=== PATIENT | female | born 1965 | race Caucasian/White ===

== ENCOUNTER → 2020-08-22 08:00 | Outpatient (BNVA) | payer SELFPAY | PROVIDERS: PCP Nurse Practitioner Family; Visit Provider Student in an Organized Health Care Education/Training Program | DX: Z13.89 Encounter for screening for other disorder (principal) ==

== ENCOUNTER 2020-11-18 07:22 | Outpatient (REF) | payer BC, SELFPAY ==
[2020-11-18 07:59] LABS: MANUAL DIFF FLAG NO
[2020-11-18 08:20] LABS: Estimated Average Glucose 123 mg/dL; Hemoglobin A1C 149.0322 umol/L; Hemoglobin A1c % 5.9 %
[2020-11-18 08:28] LABS: Cholesterol 145 mg/dL; HDL Cholesterol 38 mg/dL; LDL Cholesterol Calculated 73 mg/dl; Lipase 21 U/L (8-78); Triglycerides 170 mg/dL
[2020-11-18 08:29] LABS: Alanine Aminotransferase 38 U/L (0-31); Albumin Level 4.5 g/dL (3.5-5.0); Alkaline Phosphatase 163 U/L (39-117); Anion Gap 15 (12-20); Aspartate Amino Transferase 23 U/L (5-31); Basophils Percent Auto 0.6 % (0-2); Bilirubin Total 0.8 mg/dL (0.0-1.0); Blood Urea Nitrogen 17 mg/dL (9-16); C Reactive Protein 0.58 mg/dL (< or = 0.50); Carbon Dioxide 27 mmol/L (22-29); Chloride 105 mmol/L (96-108); Eosinophils Absolute Auto 0.2 X10*3/uL (0.0-0.4); Eosinophils Percent Auto 2.5 % (0-4); Estimated Glomerular Filt Rate > 60; Glucose Random 123 mg/dL (60-115); Hematocrit 42.4 % (37-47); Hemoglobin 13.7 g/dl (12.0-16.0); Imm Gran Abs Auto 0.01 X10*3/uL (0.00-0.03); Imm Gran Pct Auto 0.2 % (0.0-0.4); Lymphocytes Absolute Auto 1.7 X10*3/uL (1.2-4.9); Lymphocytes Percent Auto 27.3 % (20-40); Mean Corpuscular HGB Conc 32.3 g/dl (31.0-35.0); Mean Corpuscular Hemoglobin 29.8 pg (27.0-33.0); Mean Corpuscular Volume 92.2 fL (80-98); Mean Platelet Volume 10.4 fL (9.4-12.3); Monocytes Absolute Auto 0.4 X10*3/uL (0.1-1.2); Monocytes Percent Auto 6.1 % (2-11); Neutrophils Percent Auto 63.3 % (45-73); Platelet Count 152 X10*3/uL (160-400); Potassium 4.5 mmol/L (3.3-5.1); Red Cell Distribution Width 13.2 % (11.0-16.0); Sodium 142 mmol/L (135-145); Total Protein 6.9 g/dL (6.5-8.0); White Blood Count 6.4 X10*3/uL (4.8-10.8)
[2020-11-18 08:51] LABS: TSH reflex Free T4 1.76 uIU/mL (0.32-4.0); Vitamin D 25-OH Total 14.7 ng/mL (>30)
[2020-11-18 09:28] LABS: Erythrocyte Sedimentation Rate 18 MM/HR (0-20)
== END 2020-11-18 07:23 | disposition home or self-care (01) ==
LOC: HO.LAB 07:22
PROVIDERS: PCP Nurse Practitioner Family; Visit Provider Student in an Organized Health Care Education/Training Program
DX: M05.9 Rheumatoid arthritis with rheumatoid factor, unspecified (principal); I10 Essential (primary) hypertension; E78.5 Hyperlipidemia, unspecified; E55.9 Vitamin D deficiency, unspecified; R73.02 Impaired glucose tolerance (oral)
CPT/HCPCS: 36415; 80053; 80061; 82306; 83036; 83690; 84443; 85025; 85652; 86140

== ENCOUNTER → 2020-11-21 07:49 | Outpatient (BNVA) | payer BC, SELFPAY | PROVIDERS: Visit Provider Student in an Organized Health Care Education/Training Program ==

== ENCOUNTER 2021-03-19 11:40 | Outpatient (REF) | payer BC, SELFPAY ==
[2021-03-19 13:55] LABS: MANUAL DIFF FLAG NO
[2021-03-19 14:01] LABS: Basophils Percent Auto 0.4 % (0-2); Eosinophils Absolute Auto 0.1 X10*3/uL (0.0-0.4); Eosinophils Percent Auto 1.3 % (0-4); Hematocrit 44.6 % (37-47); Hemoglobin 14.3 g/dl (12.0-16.0); Imm Gran Abs Auto 0.07 X10*3/uL (0.00-0.03); Imm Gran Pct Auto 0.8 % (0.0-0.4); Lymphocytes Absolute Auto 1.7 X10*3/uL (1.2-4.9); Lymphocytes Percent Auto 19.3 % (20-40); Mean Corpuscular HGB Conc 32.1 g/dl (31.0-35.0); Mean Corpuscular Hemoglobin 29.5 pg (27.0-33.0); Mean Platelet Volume 10.4 fL (9.4-12.3); Monocytes Absolute Auto 0.5 X10*3/uL (0.1-1.2); Monocytes Percent Auto 5.2 % (2-11); Neutrophils Absolute Auto 6.6 X10*3/uL (2.0-8.3); Platelet Count 185 X10*3/uL (160-400); Red Blood Count 4.85 X10*6/uL (4.20-5.50); Red Cell Distribution Width 13.2 % (11.0-16.0)
[2021-03-19 14:18] LABS: Alanine Aminotransferase 47 U/L (0-31); Albumin Level 4.6 g/dL (3.5-5.0); Alkaline Phosphatase 160 U/L (39-117); Anion Gap 18 (12-20); Aspartate Amino Transferase 28 U/L (5-31); Bilirubin Total 0.5 mg/dL (0.0-1.0); Blood Urea Nitrogen 14 mg/dL (9-16); C Reactive Protein 0.46 mg/dL (< or = 0.50); Calcium 9.3 mg/dL (8.4-10.2); Carbon Dioxide 26 mmol/L (22-29); Chloride 104 mmol/L (96-108); Estimated Glomerular Filt Rate 58; Glucose Random 95 mg/dL (60-115); Potassium 4.6 mmol/L (3.3-5.1); Sodium 143 mmol/L (135-145); Total Protein 7.3 g/dL (6.5-8.0)
[2021-03-19 14:42] LABS: Erythrocyte Sedimentation Rate 18 MM/HR (0-20)
== END 2021-03-19 11:41 | disposition home or self-care (01) ==
LOC: HO.HMGCLDS 11:40
PROVIDERS: PCP Internal Medicine; Visit Provider Student in an Organized Health Care Education/Training Program
DX: M05.9 Rheumatoid arthritis with rheumatoid factor, unspecified (principal)
CPT/HCPCS: 36415; 80053; 85025; 85652; 86140

== ENCOUNTER → 2021-03-22 07:33 | Outpatient (BNVA) | payer BC, SELFPAY | PROVIDERS: PCP Nurse Practitioner Family; Visit Provider Student in an Organized Health Care Education/Training Program ==

== ENCOUNTER → 2021-06-27 07:50 | Outpatient (BNVA) | payer BC, SELFPAY | PROVIDERS: PCP Nurse Practitioner Family; Visit Provider Nurse Practitioner Family ==

== ENCOUNTER → 2021-07-12 08:40 | Outpatient (BNVA) | payer BC, SELFPAY | PROVIDERS: PCP Nurse Practitioner Family; Visit Provider Physician Assistant ==

== ENCOUNTER 2021-08-28 11:22 | Outpatient (REF) | payer BC, SELFPAY ==
[2021-08-28 14:00] LABS: MANUAL DIFF FLAG NO
[2021-08-28 14:12] LABS: Basophils Percent Auto 0.4 % (0-2); Eosinophils Absolute Auto 0.1 X10*3/uL (0.0-0.4); Eosinophils Percent Auto 1.6 % (0-4); Hematocrit 45.5 % (37.0-47.0); Hemoglobin 14.8 g/dl (12.0-16.0); Imm Gran Abs Auto 0.02 X10*3/uL (0.00-0.03); Imm Gran Pct Auto 0.3 % (0.0-0.4); Lymphocytes Absolute Auto 1.9 X10*3/uL (1.2-4.9); Lymphocytes Percent Auto 27.1 % (20-40); Mean Corpuscular HGB Conc 32.5 g/dl (31.0-35.0); Mean Corpuscular Volume 92.3 fL (80.0-98.0); Mean Platelet Volume 10.3 fL (9.4-12.3); Monocytes Absolute Auto 0.4 X10*3/uL (0.1-1.2); Monocytes Percent Auto 5.7 % (2-11); Neutrophils Absolute Auto 4.4 x10*3/uL (2.0-8.3); Neutrophils Percent Auto 64.9 % (45-73); Platelet Count 172 X10*3/uL (160-400); Red Blood Count 4.93 X10*6/uL (4.20-5.50); Red Cell Distribution Width 13.1 % (11.0-16.0); White Blood Count 6.8 X10*3/uL (4.8-10.8)
[2021-08-28 14:30] LABS: Alanine Aminotransferase 40 U/L (0-31); Albumin Level 4.5 g/dL (3.5-5.0); Alkaline Phosphatase 156 U/L (39-117); Anion Gap 15 (12-20); Aspartate Amino Transferase 24 U/L (5-31); Bilirubin Total 0.7 mg/dL (0.0-1.0); Blood Urea Nitrogen 13 mg/dL (9-16); C Reactive Protein 0.59 mg/dL (< or = 0.50); Calcium 9.8 mg/dL (8.4-10.2); Carbon Dioxide 29 mmol/L (22-29); Chloride 102 mmol/L (96-108); Estimated Glomerular Filt Rate 57; Glucose Random 116 mg/dL (60-115); Potassium 4.7 mmol/L (3.3-5.1); Sodium 141 mmol/L (135-145); Total Protein 7.3 g/dL (6.5-8.0)
[2021-08-28 14:55] LABS: Erythrocyte Sedimentation Rate 18 MM/HR (0-20)
== END 2021-08-28 11:23 | disposition home or self-care (01) ==
LOC: HO.HMGCLDS 11:22
PROVIDERS: Student in an Organized Health Care Education/Training Program; PCP Internal Medicine; Visit Provider Nurse Practitioner Family
DX: M05.9 Rheumatoid arthritis with rheumatoid factor, unspecified (principal)
CPT/HCPCS: 36415; 80053; 85025; 85652; 86140

== ENCOUNTER 2021-09-21 10:44 | Outpatient (REF) | payer BC, SELFPAY ==
[2021-09-26 22:22] LABS: Alkaline Phosphatase Bone 19.1 mcg/L (5.6-29.0)
== END 2021-09-21 10:45 | disposition home or self-care (01) ==
LOC: HO.HMGCLDS 10:44
PROVIDERS: PCP Internal Medicine; Visit Provider Nurse Practitioner Family
DX: R74.8 Abnormal levels of other serum enzymes (principal)
CPT/HCPCS: 36415; 84075

== ENCOUNTER → 2021-10-01 08:02 | Outpatient (BNVA) | payer BC, SELFPAY | PROVIDERS: PCP Nurse Practitioner Family; Visit Provider Nurse Practitioner Family ==

== ENCOUNTER → 2021-12-20 08:41 | Outpatient (BNVA) | payer BC, SELFPAY | PROVIDERS: PCP Nurse Practitioner Family; Visit Provider Nurse Practitioner Family | DX: Z13.89 Encounter for screening for other disorder (principal) ==

== ENCOUNTER 2021-12-21 09:41 | Outpatient (REF) | payer BC, SELFPAY ==
[2021-12-21 11:10] LABS: MANUAL DIFF FLAG NO
[2021-12-21 11:20] LABS: Basophils Percent Auto 0.3 % (0-2); Eosinophils Absolute Auto 0.2 X10*3/uL (0.0-0.4); Eosinophils Percent Auto 2.2 % (0-4); Hematocrit 43.7 % (37.0-47.0); Imm Gran Abs Auto 0.01 X10*3/uL (0.00-0.03); Imm Gran Pct Auto 0.1 % (0.0-0.4); Lymphocytes Absolute Auto 1.5 X10*3/uL (1.2-4.9); Lymphocytes Percent Auto 21.3 % (20-40); Mean Corpuscular Hemoglobin 29.4 pg (27.0-33.0); Mean Corpuscular Volume 91.8 fL (80.0-98.0); Mean Platelet Volume 10.4 fL (9.4-12.3); Monocytes Absolute Auto 0.5 X10*3/uL (0.1-1.2); Monocytes Percent Auto 6.5 % (2-11); Neutrophils Absolute Auto 4.8 x10*3/uL (2.0-8.3); Neutrophils Percent Auto 69.6 % (45-73); Platelet Count 170 X10*3/uL (160-400); Red Blood Count 4.76 X10*6/uL (4.20-5.50); Red Cell Distribution Width 13.2 % (11.0-16.0); White Blood Count 6.9 X10*3/uL (4.8-10.8)
[2021-12-21 11:40] LABS: Alanine Aminotransferase 43 U/L (0-31); Albumin Level 4.5 g/dL (3.5-5.0); Alkaline Phosphatase 140 U/L (39-117); Anion Gap 14 (12-20); Aspartate Amino Transferase 26 U/L (5-31); Bilirubin Total 0.5 mg/dL (0.0-1.0); Blood Urea Nitrogen 17 mg/dL (9-16); C Reactive Protein 0.48 mg/dL (< or = 0.50); Calcium 9.5 mg/dL (8.4-10.2); Carbon Dioxide 28 mmol/L (22-29); Chloride 103 mmol/L (96-108); Estimated Glomerular Filt Rate > 60; Glucose Random 142 mg/dL (60-115); Potassium 4.7 mmol/L (3.3-5.1); Sodium 140 mmol/L (135-145); Total Protein 7.1 g/dL (6.5-8.0)
[2021-12-21 12:09] LABS: Erythrocyte Sedimentation Rate 17 MM/HR (0-20)
== END 2021-12-21 09:42 | disposition home or self-care (01) ==
LOC: HO.HMGCLDS 09:41
PROVIDERS: Visit Provider Nurse Practitioner Family
DX: M05.9 Rheumatoid arthritis with rheumatoid factor, unspecified (principal)
CPT/HCPCS: 36415; 80053; 85025; 85652; 86140

== ENCOUNTER 2022-04-17 09:45 | Outpatient (REF) | payer BC, SELFPAY ==
[2022-04-17 11:19] LABS: MANUAL DIFF FLAG NO
[2022-04-17 11:26] LABS: Basophils Percent Auto 0.5 % (0-2); Eosinophils Absolute Auto 0.1 X10*3/uL (0.0-0.4); Eosinophils Percent Auto 1.3 % (0-4); Hematocrit 43.5 % (37.0-47.0); Hemoglobin 14.4 g/dl (12.0-16.0); Imm Gran Abs Auto 0.02 X10*3/uL (0.00-0.03); Imm Gran Pct Auto 0.3 % (0.0-0.4); Lymphocytes Absolute Auto 1.7 X10*3/uL (1.2-4.9); Lymphocytes Percent Auto 21.3 % (20-40); Mean Corpuscular HGB Conc 33.1 g/dl (31.0-35.0); Mean Corpuscular Hemoglobin 29.8 pg (27.0-33.0); Mean Corpuscular Volume 90.1 fL (80.0-98.0); Mean Platelet Volume 10.1 fL (9.4-12.3); Monocytes Absolute Auto 0.5 X10*3/uL (0.1-1.2); Monocytes Percent Auto 5.9 % (2-11); Neutrophils Absolute Auto 5.5 x10*3/uL (2.0-8.3); Neutrophils Percent Auto 70.7 % (45-73); Platelet Count 166 X10*3/uL (160-400); Red Blood Count 4.83 X10*6/uL (4.20-5.50); Red Cell Distribution Width 13.1 % (11.0-16.0); White Blood Count 7.8 X10*3/uL (4.8-10.8)
[2022-04-17 11:39] LABS: Alanine Aminotransferase 49 U/L (0-31); Aspartate Amino Transferase 26 U/L (5-31); C Reactive Protein 0.38 mg/dL (< or = 0.50); Estimated Glomerular Filt Rate 59
[2022-04-17 12:18] LABS: Erythrocyte Sedimentation Rate 17 MM/HR (0-20)
== END 2022-04-17 09:46 | disposition home or self-care (01) ==
LOC: HO.HMGCLDS 09:45
PROVIDERS: PCP Internal Medicine; Visit Provider Nurse Practitioner Family
DX: M05.9 Rheumatoid arthritis with rheumatoid factor, unspecified (principal); Z79.899 Other long term (current) drug therapy
CPT/HCPCS: 36415; 82565; 84450; 84460; 85025; 85652; 86140

== ENCOUNTER 2022-07-08 13:40 | Outpatient (REF) | payer BC, SELFPAY ==
--- NOTE | ~2022-07-08 | XR_ITS ---
EXAMINATION: BILATERAL HAND X-RAY CLINICAL INFORMATION: Rheumatoid arthritis COMPARISON: Previous x-ray October 2019 TECHNIQUE: 3 views of each hand FINDINGS: Left: No fracture or dislocation. Mild subluxation at the first MCP joint, and joint space narrowing. There is question of small subchondral cysts or erosive changes. Joint spaces are otherwise normal. There may be a small erosion in the ulnar styloid. Stable sclerotic density in the distal radial shaft. Soft tissues are normal. Right: Bone alignment is normal. No fracture or dislocation. Sclerotic density in the distal radius stable from previous exam from 2019. Normal joint spaces. Normal soft tissues. XR/XR hand LT min 3V IMPRESSION: Left: Mild arthritis and subluxation at the first MCP joint. Question small erosion in the ulnar styloid. Right: No evidence of arthritis.
--- NOTE | ~2022-07-08 | XR_ITS ---
EXAMINATION: BILATERAL HAND X-RAY CLINICAL INFORMATION: Rheumatoid arthritis COMPARISON: Previous x-ray October 2019 TECHNIQUE: 3 views of each hand FINDINGS: Left: No fracture or dislocation. Mild subluxation at the first MCP joint, and joint space narrowing. There is question of small subchondral cysts or erosive changes. Joint spaces are otherwise normal. There may be a small erosion in the ulnar styloid. Stable sclerotic density in the distal radial shaft. Soft tissues are normal. Right: Bone alignment is normal. No fracture or dislocation. Sclerotic density in the distal radius stable from previous exam from 2019. Normal joint spaces. Normal soft tissues. XR/XR hand RT min 3V IMPRESSION: Left: Mild arthritis and subluxation at the first MCP joint. Question small erosion in the ulnar styloid. Right: No evidence of arthritis.
--- NOTE | ~2022-07-08 | XR_ITS ---
EXAMINATION: BILATERAL FOOT X-RAY CLINICAL INFORMATION: Rheumatoid arthritis COMPARISON: Previous x-ray February 2020 TECHNIQUE: 3 views of each foot FINDINGS: Right: There is hallux valgus deformity at the first MTP joint. There is lateral subluxation at the second third and fourth MTP joints. There are cysts or erosive changes at the IP joint of the great toe and the second third and fourth MTP joints. Joint spaces are otherwise normal. There is a small plantar calcaneal spur. Soft tissues are otherwise normal. Left: There are postsurgical changes with plate and screws across the first MTP joint and ankylosis. Orthopedic hardware appears intact and unchanged. There is resection of the metatarsal heads of the second through fifth toes. There are no cysts or erosive changes. Plantar calcaneal spur. Soft tissues are otherwise normal. XR/XR foot RT 2V IMPRESSION: Right: Hallux valgus deformity at the first MTP joint. Inflammatory arthritis and doesn't subluxation at the second third and fourth MTP joints and inflammatory arthritis at the IP joint of the first toe. This is not appear appreciably changed from 2020. Left: Stable postsurgical changes.
--- NOTE | ~2022-07-08 | XR_ITS ---
EXAMINATION: BILATERAL FOOT X-RAY CLINICAL INFORMATION: Rheumatoid arthritis COMPARISON: Previous x-ray February 2020 TECHNIQUE: 3 views of each foot FINDINGS: Right: There is hallux valgus deformity at the first MTP joint. There is lateral subluxation at the second third and fourth MTP joints. There are cysts or erosive changes at the IP joint of the great toe and the second third and fourth MTP joints. Joint spaces are otherwise normal. There is a small plantar calcaneal spur. Soft tissues are otherwise normal. Left: There are postsurgical changes with plate and screws across the first MTP joint and ankylosis. Orthopedic hardware appears intact and unchanged. There is resection of the metatarsal heads of the second through fifth toes. There are no cysts or erosive changes. Plantar calcaneal spur. Soft tissues are otherwise normal. XR/XR foot LT 2V IMPRESSION: Right: Hallux valgus deformity at the first MTP joint. Inflammatory arthritis and doesn't subluxation at the second third and fourth MTP joints and inflammatory arthritis at the IP joint of the first toe. This is not appear appreciably changed from 2020. Left: Stable postsurgical changes.
[2022-07-08 16:27] LABS: MANUAL DIFF FLAG NO
[2022-07-08 16:33] LABS: Basophils Percent Auto 0.5 % (0-2); Eosinophils Absolute Auto 0.1 X10*3/uL (0.0-0.4); Eosinophils Percent Auto 1.3 % (0-4); Hematocrit 43.9 % (37.0-47.0); Hemoglobin 14.5 g/dl (12.0-16.0); Imm Gran Abs Auto 0.02 X10*3/uL (0.00-0.03); Imm Gran Pct Auto 0.2 % (0.0-0.4); Lymphocytes Absolute Auto 1.7 X10*3/uL (1.2-4.9); Lymphocytes Percent Auto 20.3 % (20-40); Mean Corpuscular Hemoglobin 29.8 pg (27.0-33.0); Mean Corpuscular Volume 90.1 fL (80.0-98.0); Mean Platelet Volume 10.1 fL (9.4-12.3); Monocytes Absolute Auto 0.4 X10*3/uL (0.1-1.2); Monocytes Percent Auto 4.9 % (2-11); Neutrophils Absolute Auto 6.1 x10*3/uL (2.0-8.3); Neutrophils Percent Auto 72.8 % (45-73); Platelet Count 159 X10*3/uL (160-400); Red Blood Count 4.87 X10*6/uL (4.20-5.50); Red Cell Distribution Width 12.9 % (11.0-16.0); White Blood Count 8.3 X10*3/uL (4.8-10.8)
[2022-07-08 16:40] LABS: Alanine Aminotransferase 46 U/L (0-31); Aspartate Amino Transferase 26 U/L (5-31); C Reactive Protein 0.59 mg/dL (< or = 0.50); Estimated Glomerular Filt Rate > 60
[2022-07-08 17:11] LABS: Erythrocyte Sedimentation Rate 16 MM/HR (0-20)
== END 2022-07-08 13:41 | disposition home or self-care (01) ==
LOC: HO.HMGCX 13:40
PROVIDERS: PCP Internal Medicine; Visit Provider Nurse Practitioner Family
DX: M05.9 Rheumatoid arthritis with rheumatoid factor, unspecified (principal); Z79.899 Other long term (current) drug therapy
CPT/HCPCS: 36415; 73130; 73620; 82565; 84450; 84460; 85025; 85652; 86140

== ENCOUNTER → 2022-09-30 11:30 | Outpatient (BNVA) | payer BC, SELFPAY | PROVIDERS: PCP Internal Medicine; Visit Provider Nurse Practitioner Family | DX: Z13.89 Encounter for screening for other disorder (principal) ==

== ENCOUNTER 2022-10-24 13:32 | Outpatient (REF) | payer BC, SELFPAY ==
[2022-10-24 16:29] LABS: MANUAL DIFF FLAG NO
[2022-10-24 16:38] LABS: Basophils Percent Auto 0.4 % (0-2); Eosinophils Absolute Auto 0.1 X10*3/uL (0.0-0.4); Eosinophils Percent Auto 1.7 % (0-4); Hematocrit 41.6 % (37.0-47.0); Hemoglobin 13.5 g/dl (12.0-16.0); Imm Gran Abs Auto 0.02 X10*3/uL (0.00-0.03); Imm Gran Pct Auto 0.2 % (0.0-0.4); Lymphocytes Absolute Auto 1.9 X10*3/uL (1.2-4.9); Lymphocytes Percent Auto 22.4 % (20-40); Mean Corpuscular HGB Conc 32.5 g/dl (31.0-35.0); Mean Corpuscular Hemoglobin 29.5 pg (27.0-33.0); Mean Platelet Volume 10.4 fL (9.4-12.3); Monocytes Absolute Auto 0.5 X10*3/uL (0.1-1.2); Monocytes Percent Auto 6.3 % (2-11); Neutrophils Absolute Auto 5.7 x10*3/uL (2.0-8.3); Platelet Count 161 X10*3/uL (160-400); Red Blood Count 4.57 X10*6/uL (4.20-5.50); Red Cell Distribution Width 13.3 % (11.0-16.0); White Blood Count 8.3 X10*3/uL (4.8-10.8)
[2022-10-24 16:47] LABS: Alanine Aminotransferase 32 U/L (0-31); Aspartate Amino Transferase 21 U/L (5-31); Estimated Glomerular Filt Rate > 60; Uric Acid 7.8 mg/dL (2.4-5.7)
[2022-10-24 17:18] LABS: Erythrocyte Sedimentation Rate 27 MM/HR (0-20)
[2022-10-25 08:43] LABS: HBc Num1 0.07 S/CO (0.00-0.79); HBsAGNum1 0.23 S/CO (0.00-0.99); Hepatitis A Antibody IgM 0.15 Index (0-0.79); Hepatitis B Core Antibody Nonreactive (Nonreactive); Hepatitis B Surface Antigen Negative (Negative); ~HepC Num1 0.05 S/CO (0.00-0.79); ~Hepatitis A Antibody IgM Nonreactive (Nonreactive); ~Hepatitis B Surface Antibody NONREACTIVE (Nonreactive); ~Hepatitis C Antibody Nonreactive (Nonreactive)
== END 2022-10-24 13:33 | disposition home or self-care (01) ==
LOC: HO.HMGCLDS 13:32
PROVIDERS: PCP Internal Medicine; Visit Provider Nurse Practitioner Family
DX: M05.9 Rheumatoid arthritis with rheumatoid factor, unspecified (principal); M25.50 Pain in unspecified joint; Z79.899 Other long term (current) drug therapy
CPT/HCPCS: 36415; 82565; 84450; 84460; 84550; 85025; 85652; 86140; 86704; 86706; 86709; 86803; 87340

== ENCOUNTER → 2022-11-05 11:42 | Outpatient (BNVA) | payer BC, SELFPAY | PROVIDERS: PCP Internal Medicine; Visit Provider Nurse Practitioner Family | DX: Z13.89 Encounter for screening for other disorder (principal) ==

== ENCOUNTER 2023-01-08 07:52 | Outpatient (REF) | payer BC, SELFPAY ==
[2023-01-10 15:14] LABS: TS Negative Control Passed; TS Panel A 0; TS Panel B 3; TS Positive Control Passed; TSpotTB Negative (Negative)
== END 2023-01-08 07:53 | disposition home or self-care (01) ==
LOC: HO.HMGCLDS 07:52
PROVIDERS: PCP Internal Medicine; Visit Provider Nurse Practitioner Family
DX: M05.9 Rheumatoid arthritis with rheumatoid factor, unspecified (principal)
CPT/HCPCS: 36415; 86481

== ENCOUNTER → 2023-01-24 10:40 | Outpatient (BNVA) | payer BC, SELFPAY | PROVIDERS: PCP Internal Medicine; Visit Provider Nurse Practitioner Family ==

== ENCOUNTER 2023-01-30 13:39 | Outpatient (REF) | payer BC, SELFPAY ==
[2023-01-30 16:40] LABS: MANUAL DIFF FLAG NO
[2023-01-30 16:43] LABS: Basophils Percent Auto 0.5 % (0-2); Eosinophils Absolute Auto 0.1 X10*3/uL (0.0-0.4); Eosinophils Percent Auto 1.2 % (0-4); Hematocrit 42.8 % (37.0-47.0); Hemoglobin 14.3 g/dl (12.0-16.0); Imm Gran Abs Auto 0.03 X10*3/uL (0.00-0.03); Imm Gran Pct Auto 0.4 % (0.0-0.4); Lymphocytes Absolute Auto 1.6 X10*3/uL (1.2-4.9); Mean Corpuscular HGB Conc 33.4 g/dl (31.0-35.0); Mean Corpuscular Hemoglobin 29.9 pg (27.0-33.0); Mean Corpuscular Volume 89.4 fL (80.0-98.0); Mean Platelet Volume 9.9 fL (9.4-12.3); Monocytes Absolute Auto 0.4 X10*3/uL (0.1-1.2); Monocytes Percent Auto 5.3 % (2-11); Neutrophils Absolute Auto 5.9 x10*3/uL (2.0-8.3); Neutrophils Percent Auto 72.6 % (45-73); Platelet Count 168 X10*3/uL (160-400); Red Blood Count 4.79 X10*6/uL (4.20-5.50); Red Cell Distribution Width 13.4 % (11.0-16.0); White Blood Count 8.2 X10*3/uL (4.8-10.8)
[2023-01-30 16:55] LABS: Alanine Aminotransferase 23 U/L (0-31); Albumin Level 4.3 g/dL (3.5-5.0); Alkaline Phosphatase 146 U/L (39-117); Anion Gap 14 (12-20); Aspartate Amino Transferase 16 U/L (5-31); Bilirubin Total 0.6 mg/dL (0.0-1.0); Blood Urea Nitrogen 19 mg/dL (9-16); C Reactive Protein 0.84 mg/dL (< or = 0.50); Calcium 9.1 mg/dL (8.4-10.2); Carbon Dioxide 29 mmol/L (22-29); Chloride 104 mmol/L (96-108); Estimated Glomerular Filt Rate > 60; Glucose Random 164 mg/dL (60-115); Potassium 4.5 mmol/L (3.3-5.1); Sodium 142 mmol/L (135-145); Total Protein 7.1 g/dL (6.5-8.0)
[2023-01-30 17:41] LABS: Erythrocyte Sedimentation Rate 33 MM/HR (0-20)
== END 2023-01-30 13:40 | disposition home or self-care (01) ==
LOC: HO.HMGCLDS 13:39
PROVIDERS: PCP Internal Medicine; Visit Provider Nurse Practitioner Family
DX: M05.9 Rheumatoid arthritis with rheumatoid factor, unspecified (principal)
CPT/HCPCS: 36415; 80053; 85025; 85652; 86140

== ENCOUNTER 2023-05-09 10:21 | Outpatient (REF) | payer BC, SELFPAY ==
[2023-05-09 13:15] LABS: MANUAL DIFF FLAG NO
[2023-05-09 13:25] LABS: Basophils Percent Auto 0.5 % (0-2); Eosinophils Absolute Auto 0.1 X10*3/uL (0.0-0.4); Eosinophils Percent Auto 1.3 % (0-4); Hematocrit 45.1 % (37.0-47.0); Hemoglobin 14.8 g/dl (12.0-16.0); Imm Gran Abs Auto 0.03 X10*3/uL (0.00-0.03); Imm Gran Pct Auto 0.4 % (0.0-0.4); Lymphocytes Absolute Auto 1.7 X10*3/uL (1.2-4.9); Lymphocytes Percent Auto 20.6 % (20-40); Mean Corpuscular HGB Conc 32.8 g/dl (31.0-35.0); Mean Corpuscular Volume 91.3 fL (80.0-98.0); Mean Platelet Volume 10.2 fL (9.4-12.3); Monocytes Absolute Auto 0.4 X10*3/uL (0.1-1.2); Monocytes Percent Auto 4.7 % (2-11); Neutrophils Percent Auto 72.5 % (45-73); Platelet Count 181 X10*3/uL (160-400); Red Blood Count 4.94 X10*6/uL (4.20-5.50); Red Cell Distribution Width 13.6 % (11.0-16.0); White Blood Count 8.3 X10*3/uL (4.8-10.8)
[2023-05-09 13:52] LABS: Alanine Aminotransferase 32 U/L (0-31); Albumin Level 4.5 g/dL (3.5-5.0); Alkaline Phosphatase 133 U/L (39-117); Anion Gap 18 (12-20); Aspartate Amino Transferase 20 U/L (5-31); Bilirubin Total 0.5 mg/dL (0.0-1.0); Blood Urea Nitrogen 15 mg/dL (9-16); Calcium 9.7 mg/dL (8.4-10.2); Carbon Dioxide 24 mmol/L (22-29); Chloride 105 mmol/L (96-108); Estimated Glomerular Filt Rate > 60; Glucose Random 146 mg/dL (60-115); Potassium 4.1 mmol/L (3.3-5.1); Sodium 143 mmol/L (135-145); Total Protein 7.4 g/dL (6.5-8.0)
[2023-05-09 14:13] LABS: Erythrocyte Sedimentation Rate 16 MM/HR (0-20)
== END 2023-05-09 10:22 | disposition home or self-care (01) ==
LOC: HO.HMGCLDS 10:21
PROVIDERS: PCP Internal Medicine; Visit Provider Nurse Practitioner Family
DX: M05.9 Rheumatoid arthritis with rheumatoid factor, unspecified (principal)
CPT/HCPCS: 36415; 80053; 85025; 85652; 86140

== ENCOUNTER 2023-05-14 15:20 | Outpatient (AMB) | payer BC, SELFPAY ==
[2023-05-14 15:28] VITALS: BP 130/70; PULSE 108; TEMP 36.6; O2SAT 95; BMI 32.4
--- NOTE | 2023-05-14 15:28 | A.OFFVIS_ITS ---
Intake Vital Signs 05/14/23 15:28 Height 5 ft 6 in Weight 201 lb 0.985 oz BMI 32.4 BP 130/70 Blood Pressure Location Rt brachial Position Sitting Pulse 108 H Pulse Source Pulse Oximeter Temp 97.9 F Temp Source Skin Pulse Oximetry (%) 95 Intake Visit Reasons: RA Flavor Room Worker Required: No Accompanied by: Self / Same As Patient Allergies acetaminophen [From PERCOCET] Allergy (Intermediate, Verified 05/14/23 15:31) swelling oxycodone [From PERCOCET] Allergy (Intermediate, Verified 05/14/23 15:31) Swelling Medication List - Last Reconciled 05/14/23 by Hawa Carbone MD adalimumab (Humira(CF) Pen) 40 mg (0.4 mL) subcut Q2W apixaban (Eliquis) 5 mg PO BID atorvastatin 80 mg PO DAILY sertraline 50 mg PO DAILY HPI HPI Comments History of Present Illness Details This is a 57-year-old female with seropositive RA who returns for follow-up. She was last evaluated by Amalia Carmichael 01/2023 Patient stated that back in December she started having significant RA flares affecting multiple joints HCQ, soon after she started having chest pain. 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 MR abdomen was done which showed similar findings as well as a liver hemangioma. She was started on Eliquis. She was evaluated by Dr. Jeffers, she had a walk test which was unremarkable, PFT showed mild restrictive disease. She was also evaluated by [facility] Dr. Trejo. She is currently on Eliquis. She notes intermittent shortness of breath. Patient was switched from Enbrel to Humira last visit. She has been using it for the last 3 months. She knows dramatic improvement. 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 [facility] Denies arthralgias and Denies stiffness Physical Exam Vital Signs: Last Vital Signs Temp 97.9 F 05/14/23 15:28 Pulse 108 H 05/14/23 15:28 BP 130/70 05/14/23 15:28 Pulse Ox 95 05/14/23 15:28 BMI result Body Mass Index 32.4 Const General: cooperative, healthy appearing and comfortable Nutritional Appearance: obese Orientation/consciousness: patient oriented x3 Limitations: no limitations HEENT Head: Yes normocephalic and Yes atraumatic Mouth: moist mucous membranes Resp Effort & Inspection: normal respiratory effort and able to speak in complete sentences Auscultation: clear to auscultation bilaterally Cardio Rate: regular rate Rhythm: regular rhythm Skin General skin exam: no rashes or lesions noted Neuro General: patient oriented x3 Extrem Other: Mild right wrist swelling, minimal deformity but no tenderness No active synovitis today Normal nailfold capillaroscopy Assessment & Plan Assessment & Plan (1) Seropositive rheumatoid arthritis: Comment: JAVAD (diagnosed in the 11th grade after her jaw broke - never treated with meds, only sugery), Seropositive RA (RF++ CCP++) Dx. early 2017- presented with worsening hand and foot pain. Xrays of her hands (2017) with erosions. Plaquenil started 2018 after diagnosis, then 6 tabs MTX was added but Pt had GI side effects. Switched to SubQ MTX a for a few months, unable to obtain due to medication shortage. Restarted oral MTX, stopped due to increased LFTs in December 2019. Enbrel 11/2019-01/2023 2ry non response Humira 01/2023 effective Code(s): M05.9 - Rheumatoid arthritis with rheumatoid factor, unspecified Plan: This is a 57-year-old female with seropositive erosive RA who presents for follow-up. RA is well controlled on Humira 40 mg every other week and hydroxychloroquine 200 mg Twice daily. Discontinue hydroxychloroquine. Continue Humira 40 mg every other week. Labs before next visit in 3 months (2) Interstitial lung disease due to connective tissue disease: Code(s): J84.89 - Other specified interstitial pulmonary diseases; M35.9 - Systemic involvement of connective tissue, unspecified Plan: CT chest 2022 showed findings suggestive of NSIP. This is likely related to her underlying connective tissue disease. She is being followed by tanker service attendant. PFT showed mild restrictive disease. Continue to monitor patient respiratory status, serial PFTs, can repeat CT chest in the future. If there is worsening ILD, we can consider a switch in DMARD, can consider Orencia, rituximab or an IL 6 inhibitor Will request records from Dr. Jeffers. Can add further serologies to evaluate for an overlap with another autoimmune rheumatic disease (3) DVT (deep venous thrombosis): Code(s): I82.409 - Acute embolism and thrombosis of unspecified deep veins of unspecified lower extremity Plan: Recent IVC and left renal vein thrombus. She was evaluated by zinc plating machine operator and a hypercoagulable workup was ordered. Will request records from patient's hem atologist. Currently on Eliquis 5 mg Twice daily Plan I spent 46 minutes reviewing patient's chart, evaluating patient, ordering diagnostic workup, counseling patient and documenting in the chart Coding Level of Care Code Est Pt Level 5 (32125) Diagnoses Seropositive rheumatoid arthritis M05.9 Interstitial lung disease due to connective tissue disease J84.89; M35.9 DVT (deep venous thrombosis) I82.409
== END 2023-05-14 16:15 | disposition home or self-care (01) ==
PROVIDERS: PCP Internal Medicine; Visit Provider Student in an Organized Health Care Education/Training Program
DX: M05.79 Rheumatoid arthritis with rheumatoid factor of multiple sites without organ or systems involvement (principal); J84.89 Other specified interstitial pulmonary diseases; M35.89 Other specified systemic involvement of connective tissue; I82.409 Acute embolism and thrombosis of unspecified deep veins of unspecified lower extremity
CPT/HCPCS: 99215

== ENCOUNTER → 2023-05-14 15:20 | Outpatient (BNVA) | payer BC, SELFPAY | PROVIDERS: PCP Internal Medicine; Visit Provider Student in an Organized Health Care Education/Training Program ==

== ENCOUNTER 2023-08-14 13:16 | Outpatient (AMB) | payer BC, SELFPAY ==
--- NOTE | 2023-08-14 13:26 | MHC.OFFVIS ---
Intake Vital Signs 08/14/23 13:28 Height 5 ft 6 in Weight 19 lb 13.466 oz BMI 3.2 BP 124/74 Blood Pressure Location Rt brachial Position Sitting Pulse 105 H Pulse Source Pulse Oximeter Temp 97 F Temp Source Skin Pulse Oximetry (%) 95 Oxygen Delivery Method Room Air Intake Visit Reasons: RA Intake Note: Patient presents today for RA follow up. Senior Nuclear Medicine Technologist Required: No Accompanied by: Self / Same As Patient Allergies acetaminophen [From PERCOCET] Allergy (Intermediate, Verified 08/14/23 13:27) swelling oxycodone [From PERCOCET] Allergy (Intermediate, Verified 08/14/23 13:27) Swelling Medication List - Last Reconciled 08/14/23 by Hawa Carbone MD adalimumab (Humira(CF) Pen) 40 mg (0.4 mL) subcut Q2W apixaban (Eliquis) 5 mg PO BID atorvastatin 80 mg PO DAILY sertraline 50 mg PO DAILY HPI HPI Comments History of Present Illness Details This is a 57-year-old female with seropositive RA who returns for follow-up. On Humira every other week. Well tolerated. Last visit hydroxychloroquine was discontinued. A week and half ago patient started having joint pain and stiffness of her left jaw, right knee, left index and left ankle. Most bothersome joint was her left jaw. She took 2 Tylenol with improvement. She states that this flare-up is resolving. She is doing well otherwise. There is no recent illnesses. She states that she gets intermittent shortness of breath with activity. States that the shortness of breath is sporadic and not persistent with activity. No recent illnesses. 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 Review of Systems ENT Details: Jaw pain Musc Reports arthralgias, Reports joint swelling and Reports stiffness Physical Exam Vital Signs: Last Vital Signs Temp 97 F 08/14/23 13:28 Pulse 105 H 08/14/23 13:28 BP 124/74 08/14/23 13:28 Pulse Ox 95 08/14/23 13:28 Oxygen Delivery Method Room Air 08/14/23 13:28 BMI result Body Mass Index 3.2 Const General: cooperative, healthy appearing and comfortable Nutritional Appearance: obese Orientation/consciousness: patient oriented x3 Limitations: no limitations HEENT Head: Yes normocephalic and Yes atraumatic Mouth: moist mucous membranes Resp Other: Faint Fine crackles right lung base Effort & Inspection: normal respiratory effort and able to speak in complete sentences Cardio Rate: regular rate Rhythm: regular rhythm Skin General skin exam: no rashes or lesions noted Neuro General: patient oriented x3 Extrem Other: Mild right wrist swelling, minimal deformity but no tenderness Left 2nd MCP tenderness Left TMJ pain with opening and closing her mouth Mild right knee warmth and pain with flexion and extension Normal nailfold capillaroscopy Assessment & Plan Assessment & Plan (1) Seropositive rheumatoid arthritis: Comment: JAVAD (diagnosed in the 11th grade after her jaw broke - never treated with meds, only sugery), Seropositive RA (RF++ CCP++) Dx. early 2017- presented with worsening hand and foot pain. Xrays of her hands (2017) with erosions. Plaquenil started 2018 after diagnosis, DC 05/2023 (not needed) 6 tabs MTX was added but Pt had GI side effects. Switched to SubQ MTX a for a few months, unable to obtain due to medication shortage. Restarted oral MTX, stopped due to increased LFTs in December 2019. Enbrel 11/2019-01/2023 2ry non response Humira 01/2023 effective Code(s): M05.9 - Rheumatoid arthritis with rheumatoid factor, unspecified Plan: This is a 57-year-old female with seropositive erosive RA who presents for follow-up. On Humira 40 mg every other week. Hydroxychloroquine was discontinued last visit. Patient had a flare-up about a week ago affecting her TMJ, right knee, left index and left ankle. Flare is improving on its own. Continue Humira 40 mg every other week. Labs before next visit in 3 months (2) Interstitial lung disease due to connective tissue disease: Code(s): J84.89 - Other specified interstitial pulmonary diseases; M35.9 - Systemic involvement of connective tissue, unspecified Plan: CT chest 2022 showed findings suggestive of NSIP. This is likely related to her underlying connective tissue disease. She is being followed by ela teacher Dr. Jeffers. PFT showed mild restrictive disease. She is planned for PFT and walk test in September 2023, I believe a CT scan of the chest is planned by Dr. Jeffers in the next few months. We can consider a switch in her DMARD to Orencia, rituximab or an IL 6 inhibitor if there is significant worsening of lung function (3) DVT (deep venous thrombosis): Code(s): I82.409 - Acute embolism and thrombosis of unspecified deep veins of unspecified lower extremity Plan: Recent IVC and left renal vein thrombus. She was evaluated by grails web application developer and a hypercoagulable workup was ordered. Currently on Eliquis 5 mg Twice daily. She stated that she will be getting an ultrasound to evaluate her thrombus and Eliquis might be discontinued (4) Immunization counseling: Code(s): Z71.85 - Encounter for immunization safety counseling Plan: Patient is up-to-date on her flu shot for this season, new COVID booster and pneumonia vaccines Plan I spent 46 minutes reviewing patient's chart, evaluating patient, ordering diagnostic workup, counseling patient and documenting in the chart Medications: Changed From adalimumab (Humira(CF) Pen) 40 mg (0.4 mL) subcut Q2W 2 ea 3RF M05.9 - Rheumatoid arthritis with rheumatoid factor, unspecified To Humira(CF) Pen (adalimumab) 40 mg (0.4 mL) subcut Q2W 2 ea 3RF NS M05.9 - Rheumatoid arthritis with rheumatoid factor, unspecified Coding Level of Care Code Est Pt Level 5 (08725) Diagnoses Seropositive rheumatoid arthritis M05.9 Interstitial lung disease due to connective tissue disease J84.89; M35.9 DVT (deep venous thrombosis) I82.409 Immunization counseling Z71.85
[2023-08-14 13:28] VITALS: BP 124/74; PULSE 105; TEMP 36.1; O2SAT 95
== END 2023-08-14 13:53 | disposition home or self-care (01) ==
PROVIDERS: PCP Internal Medicine; Visit Provider Student in an Organized Health Care Education/Training Program
DX: M05.79 Rheumatoid arthritis with rheumatoid factor of multiple sites without organ or systems involvement (principal); J84.89 Other specified interstitial pulmonary diseases; M35.89 Other specified systemic involvement of connective tissue; I82.409 Acute embolism and thrombosis of unspecified deep veins of unspecified lower extremity; Z71.85 Encounter for immunization safety counseling
CPT/HCPCS: 99215

== ENCOUNTER → 2023-08-14 13:16 | Outpatient (BNVA) | payer BC, SELFPAY | PROVIDERS: PCP Internal Medicine; Visit Provider Student in an Organized Health Care Education/Training Program ==

== ENCOUNTER 2025-03-01 13:51 | Outpatient (AMB) | payer BC, SELFPAY ==
[2025-03-01 14:16] VITALS: BP 104/52; PULSE 110; TEMP 37.2; O2SAT 90; BMI 25.4
--- NOTE | 2025-03-01 14:16 | MHC.OFFWIV ---
Intake Vital Signs 03/01/25 14:16 Height 5 ft 6 in Weight 157 lb 8 oz BMI 25.4 BP 104/52 L Blood Pressure Location Rt brachial Position Sitting Pulse 110 H Pulse Source Pulse Oximeter Temp 98.9 F Temp Source Oral Pulse Oximetry (%) 90 L Oxygen Delivery Method Room Air Intake Visit Reasons: EP-sore throat, cough, body aches, headaches Intake Note: Patient present with a sore throat, body aches, and headache, times 2 weeks Patient Tobacco Use Status: Former Tobacco user Nozzle And Sleeve Worker Required: No Allergies acetaminophen (From PERCOCET) Allergy (Intermediate, Verified 03/01/25 14:21) swelling oxycodone (From PERCOCET) Allergy (Intermediate, Verified 03/01/25 14:21) Swelling Do you need a note to return to daycare/school/sports/work: No HPI HPI Comments History of Present Illness Details History - The patient is a 59-year-old female presenting with persistent cold symptoms. - Symptoms began in early January with sinus pressure and throat tickling, initially thought to be allergies. - Progression included daily headaches, sore throat, earache, and loss of voice. - Reports green nasal discharge, sinus pain, and unilateral head pressure. - History of shortness of breath and occasional chest pressure, leading to a cough with minimal expectoration. - Using Tylenol for symptom relief; denies smoking history. - had similar symptoms and his resolved. - She denies fever, chills, CP, SOB, abd pain, n/v/d. She has been eating and drinking. Physical Exam General: Cooperative, healthy appearing, comfortable and no acute distress Orientation/consciousness: Patient oriented x3 Head: Normal to inspection Ears: Hearing grossly normal bilaterally, external ears normal and TM's normal bilaterally Nose: Normal external nose present, normal nares present Face and sinus: Sinuses not tender to palpation Mouth: Normal oral and palatal mucosa present and moist mucous membranes noted Throat: Tonsils normal. Uvula is midline. Posterior oropharynx with erythema and no exudates Neck: Normal visual inspection, full ROM. No lymphadenopathy noted Respiratory: Clear to auscultation bilaterally. Normal respiratory effort, able to speak in complete sentences. No respiratory distress, not tachypneic, no tripod positioning and no use of accessory muscles Cardiovascular: Regular rate and rhythm. 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 Review of Systems Const All systems reviewed & are unremarkable except as noted in HPI and below Physical Exam Vital Signs: Last Vital Signs Temp 98.9 F 03/01/25 14:16 Pulse 110 H 03/01/25 14:16 BP 104/52 L 03/01/25 14:16 Pulse Ox 90 L 03/01/25 14:16 Oxygen Delivery Method Room Air 03/01/25 14:16 BMI result Body Mass Index 25.4 Results AMB Rapid Strep AMB Rapid Strep Negative Last Edit by Noé Mcmanus CMA on 03/01/25 15:16 Assessment & Plan Assessment & Plan (1) URI (upper respiratory infection): Code(s): J06.9 - Acute upper respiratory infection, unspecified Qualifiers: URI type: unspecified viral URI Qualified Code(s): J06.9 - Acute upper respiratory infection, unspecified Plan Most likely URI vs CAP vs bronchitis vs viral illness Rapid strep in the office is negative Plan - Initiate antibiotic therapy to address prolonged symptoms suggestive of bacterial infection. - Tessalon perles as needed for cough. - Tylenol or motrin as needed for pain or fever. - Monitor symptom progression and response to antibiotics, with follow-up if symptoms persist or worsen. Orders: Orders AMB Rapid Strep Screen Today Z13.9 - Encounter for screening, unspecified Medications: New benzonatate 100 mg PO bid-tid PRN 21 caps 0RF Cough 7 days azithromycin For 250 mg dose pack: take 500 mg today (day 1), then 250 mg for 4 days (days 2-5) PO 6 tabs 0RF Coding Level of Care Code Est Pt Level 3 (39106) Diagnoses Viral upper respiratory tract infection J06.9 URI type: unspecified viral URI
--- OUTSIDE RECORDS SUMMARY | 2025-03-01 16:19 | XMS_ITS | Patient Health Record ---
[facility] Address [address] [place] [address] Care Team Providers Care Test Car Driver Name Role Phone Carmelita LOMBARDI, Aron Primary Care Provider UnaJohn Rodrigues Unavailable [phone] Reason For Referral No Information Medications Medication SIG (Take, Route, Fr equency, Duration) Notes Start Date End Date Status Sertraline HCl Activ e Diovan Active Advil Active Vitamin D Active Pravastatin Sodium A ctive Social History Tobacco use other than smoking: Question Answer Notes Are you an other tobacco user? No Problems Problem Type SNOMED Code ICD Code Onset Dates Problem Status W/U Status Risk Notes Problem Acquired hallux valgus (00803261) Hallux valgus (acquired), left foot (M20.12) Active confirmed Problem Acquired hallux valgus (44563773) Hallux valgus (acquired), right foot (M20.11) Active confirmed Problem Acquired hammer toe of right foot (1441413941945 105) Other hammer toe(s) (acquired), right foot (M20.41) Active confirmed Problem Acquired hammer toe of left foot ([id number] 103) Other hammer toe(s) (acquired), left foot (M20.42) Active confirmed Plan Of Treatment Pending Test Test Name Order Date X ray : Foot, left 2V 08/15/2016 X ray : Foot, left 2V 10/06/2014 X ray : Foot, right 2V 10/06/2014 X ray : Foot, right 2V 08/15/2016 [id number], [id number]/[id number], JOINT/BURSA 0 10/06/2014 [id number], [id number] Neuroma/Injection 10/06/19 15 Insurance Providers Payer Name Payer Address Payer Phone Subscriber Number Group Number Insured Name Patient Relationship to Insured Coverage Start Date Coverage End Date [facility] [id number] [place] [address] [phone] [id number] Kayla Terrazas Self - patient is the insured Medical (General) History Medical History History ICD Code Anxiety Arthritis Back,Hip,and Knee pain Depression Chicken pox Surgical History Surgery Date(Month/Year) back surgery 1995 right hand surgery 2012 neck surgery 2011 kidney removal 2009
== END 2025-03-01 15:31 | disposition home or self-care (01) ==
PROVIDERS: PCP Internal Medicine; Visit Provider Physician Assistant Medical
DX: J06.9 Acute upper respiratory infection, unspecified (principal)

== ENCOUNTER → 2025-03-01 13:51 | Outpatient (BNVA) | payer BC, SELFPAY | PROVIDERS: PCP Internal Medicine; Visit Provider Physician Assistant Medical | DX: J06.9 Acute upper respiratory infection, unspecified (principal) | CPT/HCPCS: 87880 ==